=== PATIENT | female | born 1950 ===

== ENCOUNTER 2016-10-13 10:43 | Outpatient (CLI) | payer OTHER ==
--- NOTE | 2016-10-13 17:07 | DIAGNOSTIC IMAGING REPORT ---
PROCEDURE: CT THORAX ABD PELVIS W/CONT INDICATION: CARCINOID TUMOR TECHNIQUE: 120 ml of Isovue 300 injected intravenously and axial images were obtained of the entire thorax, abdomen, and pelvis with sagittal and coronal reformations. COMPARISON: CT chest/abdomen/pelvis from [facility] 10/08/2015. FINDINGS: THORAX: Mild emphysema. No change in the five Arvizu right upper lobe nodule (series 3, image 24). Normal airways. No adenopathy or effusion. Normal thyroid gland. Normal thoracic aorta. Heart size is normal. There is no pericardial effusion. Mild dextroscoliosis and degenerative changes. ABDOMEN: Cholecystectomy with stable mild intrahepatic ductal dilation. Liver, pancreas, spleen (splenule), adrenal glands and kidneys are unremarkable. Mild atherosclerosis of the aorta. 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 Mild progression of aortocaval adenopathy 17 mm short axis (previously 12 mm) and anterior periaortic 11 mm, previously 8 mm. There has been some improvement of the left periaortic adenopathy. Mild levoscoliosis and moderate degenerative changes at L2-3. PELVIS: Moderate sigmoid diverticulosis. Hysterectomy. Normal bladder. No pelvic or inguinal adenopathy. No free fluid. No suspicious osseous lesions. IMPRESSION: 1. Mild emphysema 2. Stable 5 mm right upper lobe nodule 3. 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 Mild progression of the aortocaval and anterior periaortic adenopathy 5. Sigmoid diverticulosis 6. Cholecystectomy and hysterectomy All CT scans at this facility use dose modulation, iterative reconstruction, and/or weight-based dosing when appropriate to reduce radiation dose to as low as reasonably achievable.
== END 2016-10-13 23:00 | disposition home or self-care (01) ==
LOC: CT SRH 10:43
DX: C7A.098 Malignant carcinoid tumors of other sites (principal); I88.0 Nonspecific mesenteric lymphadenitis
CPT/HCPCS: 90074; 90100; 91280; 91406; 95059